=== PATIENT | female | born 1950 | race Caucasian/White ===

== ENCOUNTER 2016-08-16 15:27 | Emergency (ER) | payer OTHER ==
[2016-08-16 15:37] VITALS: BP 128/88
--- NOTE | 2016-08-16 15:56 | EDM.PDOC ---
[id number] Complaint: FALL [place]IA [place] Time Seen by Provider: 08/16/16 15:45 Source of Information: Reports: Patient, EMS History Limitations: Reports: No Limitations - History of Present Illness INITIAL COMMENTS - FREE TEXT/NARRATIVE: 66-year-old female slipped on the rocks hurting her right elbow and right hand. No other injury. Onset: Today Duration: Hour(s): (Within the last 2 hours) Location: Reports: Upper Extremity, Right Severity: Moderate Worsens with: Reports: Movement Associated Symptoms: Reports: Other (Anxiety) Right Elbow Pain Score (Numeric/FACES): 3 - Related Data Allergies Allergy/AdvReac Type Severity Reaction Status Date / Time Sulfa (Sulfonamide Allergy Edema Verified 08/16/16 15:38 Antibiotics) Home Meds: Home Meds ALPRAZolam [Xanax] 1 tab PO DAILY PRN 08/16/16 [History] Past Medical History HEENT History: Reports: Impaired Vision, Sinusitis, Other (See Below) Other HEENT History: hx of torn retina Cardiovascular History: Reports: Heart Murmur, Other (See Below) Other Cardiovascular History: mitral valve prolapse Musculoskeletal History: Reports: Fracture, Other (See Below) Other Musculoskeletal History: broken shoulder, left arm, right arm Psychiatric History: Reports: Anxiety - Past Surgical History HEENT Surgical History: Reports: Laser Surgery GI Surgical History: Reports: Colonoscopy Female Surgical History: Reports: D&C Oncologic Surgical History: Reports: Biopsy of Breast Social & Family History - Tobacco Use Smoking Status *Q: Never Smoker - Alcohol Use Days Per Week of Alcohol Use: 2 Number of Drinks Per Day: 3 Total Drinks Per Week: 6 - Recreational Drug Use Recreational Drug Use: No Review of Systems - Review of Systems Review Of Systems: See Below Constitutional: Denies: Fever Respiratory: Denies: Shortness of Breath Cardiovascular: Denies: Chest Pain GI/Abdominal: Denies: Abdominal Pain Musculoskeletal: Denies: Neck Pain Skin: Reports: No Symptoms Neurological: Denies: Headache Psychiatric: Reports: Anxiety Trauma Exam - Physical Exam Exam: See Below Exam Limited By: No Limitations General Appearance: Reports: Alert, No Apparent Distress Head: Reports: Atraumatic Neck: Reports: Non-Tender, Full Range of Motion Respiratory Exam: Reports: No Respiratory Distress Extremities: Other (Right elbow has surrounding edema and palpation tenderness over the olecranon. No significant bruising. She has tenderness and bruising over the distal aspect of the fifth metacarpal.) Course - Vital Signs Last Recorded V/S: Last Vital Signs Temp 98.6 F 08/16/16 15:34 Pulse 84 08/16/16 15:34 Resp 18 08/16/16 15:34 BP 128/88 08/16/16 15:34 Pulse Ox 96 08/16/16 15:34 - Orders/Labs/Meds Orders: Active Orders 24 hr Category Date Time Status Elbow Min 3V Rt [CR] Stat Exams 08/16/16 15:53 Taken Hand Comp Min 3V Rt [CR] Stat Exams 08/16/16 15:53 Taken DME for Discharge [COMM] Stat Oth 08/16/16 16:39 Ordered - Re-Assessments/Exams Free Text/Narrative Re-Assessment/Exam: 08/16/16 15:55 A right elbow and right hand x-ray were obtained. 08/16/16 16:40 Hand x-ray is negative, right elbow x-ray shows a moderately displaced radial head fracture. A posterior long-arm Ortho-Glass splint was applied and placed in a sling. The patient refused any stronger pain medications. Distal CMS was intact after the splint was applied and she will recheck with orthopedics tomorrow at 2:30 in the afternoon. Departure - Departure Time of Disposition: 17:13 Disposition: Home, Self-Care 01 Condition: good Clinical Impression: Fracture of radius Qualifiers: Encounter type: initial encounter Radius location: head Fracture type: closed Fracture alignment: displaced - Discharge Information Instructions: Radial Head Fracture, [id number] Referrals: PCP,None [Primary Care Provider] - Forms: ED Department Discharge Care Plan Goals: Keep splint on until rechecked tomorrow and wear sling for comfort. Recheck with Dr. Burton Kothari tomorrow at 2:30 in the afternoon. - My Orders Last 24 Hours: My Active Orders 08/16/16 15:53 Elbow Min 3V Rt [CR] Stat Hand Comp Min 3V Rt [CR] Stat 08/16/16 16:39 DME for Discharge [COMM] Stat - Assessment/Plan Last 24 Hours: My Active Orders 08/16/16 15:53 Elbow Min 3V Rt [CR] Stat Hand Comp Min 3V Rt [CR] Stat 08/16/16 16:39 DME for Discharge [COMM] Stat
--- NOTE | 2016-08-17 09:21 | CR ---
Radial head fracture. Tiny fracture fragment near the coronoid fossa. No dislocation.
--- NOTE | 2016-08-17 09:27 | CR ---
Scattered IP joint degenerative change. The right hand is intact.
== END 2016-08-16 17:13 | disposition home or self-care (01) ==
LOC: JP.ED 15:27
DX: S52.121A Displaced fracture of head of right radius, initial encounter for closed fracture (principal); F41.9 Anxiety disorder, unspecified; Z88.2 Allergy status to sulfonamides; Z79.899 Other long term (current) drug therapy; Z98.890 Other specified postprocedural states; W18.41XA Slipping, tripping and stumbling without falling due to stepping on object, initial encounter
CPT/HCPCS: 29105; 73080-26-RT; 73080-RT; 73130-26-RT; 73130-RT; 99284-25